=== PATIENT | male | born 1960 | race Caucasian/White ===

== ENCOUNTER 2018-03-21 19:04 | Emergency (ER) | payer OTHER ==
[~2018-03-21] VITALS: Ht 180.3 cm; Wt 96.3 kg
[2018-03-21 19:31] LABS: HEMOGLOBIN 15.4 G/DL (12.5-16.6); MCH 31.2 PG (29.0-34.0); MCV 89.2 FL (86-99); RBC DIS.WIDTH-CV 12.1 % (11.8-14.6); RBC DIS.WIDTH-SD 39.2 % (39-53); RED BLOOD COUNT 4.93 M/uL (4.00-5.50); WHITE BLOOD COUNT 7.3 K/uL (4.1-10.2)
[2018-03-21 19:52] LABS: TROP-I INTERPRETATION NEGATIVE; TROPONIN-I < 0.01 ng/mL (0.0-0.30)
[2018-03-21 20:28] LABS: CHLORIDE 106 mEq/L (99-109); MAGNESIUM 2.3 mg/dL (1.3-2.7); POTASSIUM 3.8 mEq/L (3.7-5.4); SODIUM 141 mEq/L (136-147)
[2018-03-21 20:30] LABS: GLUCOSE 98 mg/dL (70-99)
[2018-03-21 20:33] LABS: GFR ESTIMATE (CALCULATED) > 59 mL/min/ (58.99-99999)
[2018-03-21 20:34] LABS: UREA NITROGEN (BUN) 22 mg/dL (9-23)
[2018-03-21 20:44] LABS: PLAT.SUFFICIENCY ADEQUATE; PLATELET COUNT 216 K/uL (156-360)
[2018-03-21 22:10] VITALS: BP 106/76
== END 2018-03-21 22:11 | disposition home or self-care (01) ==
LOC: EME 19:04
PROVIDERS: Emergency Medicine
DX: I47.1 Supraventricular tachycardia (principal)
CPT/HCPCS: 80048; 83735; 84484; 85027; 93005; 99281; 99285; J0153

== ENCOUNTER 2018-04-28 10:04 | Emergency (ER) | payer OTHER ==
[~2018-04-28] VITALS: Ht 182.9 cm; Wt 97.9 kg
[2018-04-28 10:38] LABS: HEMATOCRIT 43.4 % (38.0-50.0); HEMOGLOBIN 15.1 G/DL (12.5-16.6); MCH 31.2 PG (29.0-34.0); MCHC 34.8 G/DL (30.0-36.0); MCV 89.7 FL (86-99); PLATELET COUNT 198 K/uL (156-360); RBC DIS.WIDTH-CV 12.2 % (11.8-14.6); RBC DIS.WIDTH-SD 39.8 % (39-53); RED BLOOD COUNT 4.84 M/uL (4.00-5.50); WHITE BLOOD COUNT 6.2 K/uL (4.1-10.2)
[2018-04-28 10:47] LABS: CHLORIDE 105 mEq/L (99-109); POTASSIUM 4.9 mEq/L (3.7-5.4); SODIUM 138 mEq/L (136-147)
[2018-04-28 10:49] LABS: GLUCOSE 95 mg/dL (70-99)
[2018-04-28 10:53] LABS: CREATININE 1.1 mg/dL (0.6-1.3); GFR ESTIMATE (CALCULATED) > 59 mL/min/ (58.99-99999)
[2018-04-28 10:54] LABS: UREA NITROGEN (BUN) 21 mg/dL (9-23)
[2018-04-28 10:59] LABS: TROP-I INTERPRETATION NEGATIVE; TROPONIN-I < 0.01 ng/mL (0.0-0.30)
[2018-04-28 11:35] VITALS: BP 105/74
== END 2018-04-28 11:37 | disposition home or self-care (01) ==
LOC: EME 10:04
PROVIDERS: Emergency Medicine
DX: I47.1 Supraventricular tachycardia (principal); R94.31 Abnormal electrocardiogram [ECG] [EKG]; Z86.79 Personal history of other diseases of the circulatory system
CPT/HCPCS: 80048; 84484; 85027; 93005; J0153